=== PATIENT | male | born 2000 | race Caucasian/White ===

== ENCOUNTER 2025-01-17 20:05 | Emergency (ER) | payer BC, SELFPAY ==
[2025-01-17 20:21] VITALS: BP 155/100; PULSE 85; RESP 18; TEMP 37.1; O2SAT 99; BMI 24.4
[2025-01-17] MEDS: NITROGLYCERIN 0.4 MG TAB.SUBL SUBLINGUAL (20:33)
--- OUTSIDE RECORDS SUMMARY | 2025-01-17 20:38 | XMS_ITS | Clinical Summary ---
Author Organization [facility] Address [address] [place] [id number] Care Team Providers Care Supervisor Pairing And Inspecting Name Role Phone Jeannette, [facility] Primary Care Provider Allergies Active Allergy Reactions Criticality Noted Date Comments Penicillins 07/15/2010 Rash Medications EPInephrine (EPIPEN JR) 0.15 MG/0.3ML injectionIndicat ions:Allergic reaction Inject 0.3 mLs into the muscle as needed for anaphylaxis . 1 each 0 06/16/2011 Active SERTRALINE HCL PO Take by mouth daily Active Active Problems Problem Noted Date Diagnosed Date H/O dysplastic nevus 01/13/2016 Benign neoplasm of skin of trunk, except scrotum 04/06/2015 Plantar warts 08/12/2013 GERD (gastroesophageal reflux disease) 2 Immunizations Name Administration Dates Next Due DTAP (<7y) 06/25/2007, 3,2002,2001,2002 HEPA 04/27/2009,06/25/2007 HIB (PRP-T) 09/23/2003,2002,2002 HPV 08/20/2016 HepB 07/22/2011,03/27/2003,2002 Influenza Vaccine >6 months,quad, PF 08/20/2016, 08/26/2014 MMR 06/25/2007,05/07/2003 Meningococcal ACWY (Menactra ) 09/04/2019,07/07/2014 Pneumococcal 23 valent 09/23/2003,2002,2002,2001 Poliovirus, inactivated (IPV) 06/25/2007 ,03/27/2003,2002,2001 TDAP Vaccine (Adacel) 09/04/2019,07/07/2014 Varicella 06/25/2007,05/07/2003 Family History Medical History Relation Comments Migraines Mother Lipids Paternal Grandfather Lipids Paternal Grandmother Relation Status Comments Brother Alive Father Alive Maternal Grandfather Alive Maternal Grandmother Alive Mother Alive Paternal Grandfather Alive Paternal Grandmother Alive Social History Tobacco Use Types Packs/Day Years Used Date Smoking Tobacco: Never Smokeless Tobacco: Never Alcohol Use Standard Drinks/Week Comments No 0 (1 standard drink = 0.6 oz pur e alcohol) Adolescent Education Answer Date Record ed Getting School Help Needed Not on file 09/06 Sex and Gender Information Value Date Recorded Sex Assigned at Not on file Legal Sex Male 5:09 AM AMBULANCE DRIVER Gender Identity Not on file Sexual Orientation Not on file Last Filed Vital Signs Vital Sign Reading Time Taken Comments Blood Pressure 137/91 12/09/2021 7:13 AM AMBULANCE DRIVER Pulse 52 12/09/2021 7:13 AM AMBULANCE DRIVER Temperature 36.6 C (97.8 F) 12/09/2021 6:24 AM AMBULANCE DRIVER Respiratory Rate 16 12/09/2021 7:13 AM AMBULANCE DRIVER Oxygen Saturation 98% 12/09/2021 7:13 AM AMBULANCE DRIVER Inhaled Oxygen Concentration - - Weight 66.2 kg (145 lb 14.4 oz) 11/04/2019 2:04 PM AMBULANCE DRIVER Height 173.4 cm (5' 8.25) 11/04/2019 2:04 PM CS T Body Mass Index 22.02 11/04/2019 2:04 PM AMBULANCE DRIVER Plan of Treatment Not on file Insurance [employer] Care Teams Supervisor Pairing And Inspecting Relationship Specialty Start Date End Date [facility], [facility] [address] [address] PCP - General 01/16/19
--- OUTSIDE RECORDS SUMMARY | 2025-01-17 20:38 | XMS_ITS | Encounter Summary ---
Author Organization [facility] Address [address] [place] [id number] Care Team Providers Care Instrument Assembly Supervisor Name Role Phone Lewis Myers MD Primary Care Provider [phone] Reason for Visit * Procedure/Equipment (Routine) - Incomplete Specialty Diagnoses / Procedures Referred By Contpho[place] t Referred To Contact Diagnoses Acute cough Procedures XR Chest 2 Views Mita Ruiz APRN, LICENSED JOURNEYMAN ELECTRICIAN [address] [place] [address] Phone: tel: fax: Referral ID Status Reason Start Date Expiration Date V isits Requested Visits Authorized [id number] Incomplete 01/06/2025 04/07/2026 1 1 Encounter Details Date Type Department Care Team (Late st Contact Info) Description 01/06/2025 9:20 AM MANAGER IT TRAINING Ancillary Procedure Radiology at [facility] [address] [place] [address] Mita Ruiz APRN, LICENSED JOURNEYMAN ELECTRICIAN [address] [place] [address] Acute cough Social History Tobacco Use Types Packs/Day Years Used Date Smoking Tobacco: Some Days Cigarettes Smokeless Tobacco: Never Sex and Gender Information Value Date Recorded Sex Assigned at Not on file Legal Sex Male 7:23 PM CDT Gender Identity Not on file Sexual Orientation Not on file documented as of this encounter Plan of Treatment Upcoming Encounters Date Type Department Care Team (Late st Contact Info) Description 01/22/2025 1:30 PM MANAGER IT TRAINING Appointment [facility] [address] [place]arma [phone] Hayley Hull, PLUMBING DESIGNER, LICENSED JOURNEYMAN ELECTRICIAN [address] [phone] documented as of this encounter Procedures Procedure Name Priority Date/Time Associated Diagnosis Comments XR CHEST 2 VIEWS STAT 01/06/2025 9:23 AM MANAGER IT TRAINING Acute cough documented in this encounter Results * XR Chest 2 Views (01/06/2025 9:23 AM MANAGER IT TRAINING) Anatomical Region Laterality Modality Chest, Lung Digital Radiogra phy 01/06/2025 9:23 AM MANAGER IT TRAINING Narrative 01/06/2025 9:27 AM MANAGER IT TRAINING EXAM: XR CHEST 2 VIEWS LOCATION: [facility] DATE: 01/06/2025 INDICATION: Cough and fever. COMPARISON: 08/28/2023 IMPRESSION: Lungs clear. Pulmonary vascularity normal. No effusion. CONCLUSION: Negative chest. No change. Procedure Note Jone David MD - 01/06/2025 EXAM: XR CHEST 2 VIEWS LOCATION: [facility] DATE: 01/06/2025 INDICATION: Cough and fever. COMPARISON: 08/28/2023 IMPRESSION: Lungs clear. Pulmonary vascularity normal. No effusion. CONCLUSION: Negative chest. No change. Mita Ruiz PLUMBING DESIGNER, LICENSED JOURNEYMAN ELECTRICIAN RAD GD Final Result documented in this encounter Visit Diagnoses Diagnosis Acute cough documented in this encounter Care Teams Instrument Assembly Supervisor Relationship Specialty Start Date End Date Lewis Myers MD [address] [address] PCP - General 08/01/11 documented as of this encounter
--- OUTSIDE RECORDS SUMMARY | 2025-01-17 20:38 | XMS_ITS | Clinical Summary ---
Author Organization [facility] Address [address] [place] [address] Care Team Providers Care Inspection Machine Tender Name Role Phone None Primary Care Provider Unavailabl e Allergies Active Allergy Reactions Criticality Noted Date Comments Penicillins Rash 08/29/2023 Social History Tobacco Use Types Packs/Day Years Used Date Smoking Tobacco: Never Assessed Sex and Gender Information Value Date Recorded Sex Assigned at Not on file Legal Sex Male 5:52 PM COUNTER STITCHER Gender Identity Not on file Sexual Orientation Not on file Last Filed Vital Signs Vital Sign Reading Time Taken Comments Blood Pressure 122/79 08/29/2023 2:43 AM CDT Pulse 50 08/29/2023 2:43 AM CDT Temperature 36.8 C (98.3 F) 08/29/2023 12:34 AM CDT Respiratory Rate 16 08/29/2023 2:43 AM CDT Oxygen Saturation 97% 08/29/2023 2:43 AM CDT Inhaled Oxygen Concentration - - Weight 68 kg (150 lb) 08/29/2023 12:34 AM CDT Height 177.8 cm (5' 10) 08/29/2023 12:34 AM CDT Body Mass Index 21.52 08/29/2023 12:34 AM CDT Plan of Treatment Health Maintenance Due Date Last Done Comments Tdap 2013 Depression screening for age 12+ 2014 HIV for age 15-65 2017 HPV series for age 9-26 (1 - Male 3-dose series) 2017 BMI (ht and wt on same day) for age 18+ 2020 Hepatitis C screening for ag e 18-79 2020 Tetanus booster 2022 COVID-19 vaccine series ( season) 2024 05/12/2021, 04/02/2021 Influenza for age 9-49 07/21/2024 Pneumococcal series for age 6-49 Aged Out No longer eligible b ased on patient's age to complete this topic Insurance [place] [id number] Care Teams Inspection Machine Tender Relationship Specialty Start Date End Date None . PCP - General 08/29/23
--- OUTSIDE RECORDS SUMMARY | 2025-01-17 20:38 | XMS_ITS | Encounter Summary ---
Author Organization [facility] Address [address], [place] [address] Care Team Providers Care River Rat Name Role Phone Lewis Myers MD Primary Care Provider [phone] Reason for Referral * Procedure/Equipment (Routine) - Incomplete Specialty Diagnoses / Procedures Referred By Contac t Referred To Contact Diagnoses Acute cough Procedures XR Chest 2 Views Mita Ruiz APRN, INSURANCE CLAIMS SUPERVISOR [address] [place] [address] Phone: tel: fax: Referral ID Status Reason Start Date Expiration Date V isits Requested Visits Authorized [id number] Incomplete 01/06/2025 04/07/2026 1 1 NE ADVERTISING DIRECTOR Reason for Visit * Reason Comments COUGH CONGESTION EYE REDNESS Encounter Details Date Type Department Care Team (Late st Contact Info) Description 01/06/2025 9:40 AM ONLINE ADVERTISING DIRECTOR Office Visit [facility] Urgent [facility] [address] [place] [address] Mita Ruiz APRN, INSURANCE CLAIMS SUPERVISOR [address] [place] [address] Bacterial sinusitis (Primary Dx); Bacterial conjunctivitis Social History Tobacco Use Types Packs/Day Years Used Date Smoking Tobacco: Some Days Cigarettes Smokeless Tobacco: Never Sex and Gender Information Value Date Recorded Sex Assigned at Not on file Legal Sex Male 7:23 PM CDT Gender Identity Not on file Sexual Orientation Not on file documented as of this encounter Last Filed Vital Signs Vital Sign Reading Time Taken Comments Blood Pressure 137/83 01/06/2025 9:06 AM ONLINE ADVERTISING DIRECTOR Pulse 78 01/06/2025 9:06 AM ONLINE ADVERTISING DIRECTOR Temperature 36.9 C (98.4 F) 01/06/2025 9:06 AM ONLINE ADVERTISING DIRECTOR Respiratory Rate 16 01/06/2025 9:06 AM ONLINE ADVERTISING DIRECTOR Oxygen Saturation 100% 01/06/2025 9:06 AM ONLINE ADVERTISING DIRECTOR Inhaled Oxygen Concentration - - Weight - - Height - - Body Mass Index - - documented in this encounter Patient Instructions * Patient Instructions* Mita Ruiz APRN, INSURANCE CLAIMS SUPERVISOR - 01/06/2025 9:40 AM ONLINE ADVERTISING DIRECTOR Sinusitis (inflammation of the sinuses) You have been diagnoses with sinusitis which means the lining of the nasal passages and sinuses is irritated. This irritation can be caused by viral or bacterial infections, allergies or irritants. Because of this irritation, the nose and face can feel congested or plugged. There can be a significant amount of pain or pressure in the face or head. Your teeth may hurt. There may be increased or decreased nasal drainage or post nasal drip (drainage down the back of the throat). The drainage may be clear or opaque, white or yellow, or may have small amounts of blood in it. You may take acetaminophen (Tylenol??) or ibuprofen (motrin?? or advil??) for pain. Read and followall instructions from the decaler before using. Hot or cold pack to the face can also deaden the pain and relieve congestion. You may take over the counter decongestants such as Sudafed?? to help with drippy noses and congestion. Antihistamines which are found in many over the counter cold and allergy tablets may also help treat symptoms. Do not take these if your provider has already given you a medication that contains medications in the same family. Antihistamines can make you drowsy and decongestants can make you feel like you have had too much coffee. You should be seen by your provider if there is no improvement in symptoms in 3- 5 days. If you complete the course of treatment and symptoms then return, you may need treatment longer than 7-10 days. Call or seek medical attention IMMEDIATELY if you develop a severe headache with vision changes, severe nausea, or high fever (>102). Call your clinic or the nurse line if there are other concerns or questions. Common Cold (URI, upper respiratory infection) You have been diagnosed with a cold or URI. This is a common infection of the nose and throat that is caused by a virus. You may have a runny or stuffy nose, itchy or sore throat, cough, congestion, body aches, headaches, sneezing, watery eyes, fatigue, and low grade fever (< 102F). Many virusescan cause a cold and generally adults can have 2-4 episodes a year and children up to 10 episodes a year. Because a cold is caused by a virus, antibiotics will NOT treat this infection. Your provider may prescribe or suggest over the counter medications to treat symptoms only, they do not treat the cause. Over the counter medications may include acetaminophen (Tylenol??), Ibuprofin (Motrin?? or Advil??), decongestants, and cough syrups. If you are taking a medication please follow directions carefully. Read and follow all instructions from the decaler before using. Typically a cold will last 1-2 weeks. Over that time symptoms may wax and wane such as nasal discharge getting thicker and more colored over the course of time. In order to keep yourself comfortable you should: drink plenty of fluids avoid caffeine and alcohol get plenty of rest keep your room humidified sooth your throat with gargles use saline nasal drops to ease congestion In order NOT to spread the cold virus: wash your hands often use tissues cover your mouth and nose when you cough or sneeze don???t share drinking glasses or utensils avoid people who are sick It is not necessary to follow up with your provider if your symptoms are improving. Call or seek medical attention IMMEDIATELY if you or your child become short of breath. Occasionally a cold will lead to other infections such as ear infections, sinus infections, bronchitis, strep throat, croup or asthma exacerbations. It is important that you follow up with your provider or call the clinic or nurse line if: your symptoms are worsening your symptoms are not improved in 4-5 days you develop a fever over 102 with chills and sweats you have a fever that lasts for more than 3 days you are vomiting you have a severe headache you have ear pain you have a persistent cough your child is persistently crying [place] [facility] (Conjunctivitis) You have been diagnosed with conjunctivitis, which is a redness and soreness of the clear membrane that covers the white part of the eye and the inside of the eyelids. It can be caused by allergies, viruses, and bacteria. If you were prescribed eye drops or ointment, use them according to the directions given. Never useeye medicine that has been prescribed for someone else. Read and follow all instructions from the decaler before using. Gently wash the eyelid with tap water and a clean washcloth to keep it clean and free of discharge. For infectious conjunctivitis, use warm-water compresses on the eye. Cool compresses feel better with allergic conjunctivitis. Apply either for 10 minutes several times a day. Wash your hands frequently. Do not touch or rub your eyes. Do not share towels, washcloths, or sheets with anyone. It is spread by contact with the tears of an infected person. Do not use any eye makeup again until your eyes have returned to normal. When used, be sure to remove it each night at bedtime. Never share eye makeup or cosmetics with anyone. You should consider throwing out eye makeup you have been using. You should routinely change your eye makeup 2-3 times a year. Do not wear contact lenses until your eyes are healed. When you resume wearing them make sure they are clean AND disinfected or use a new pair. The combination of contacts and conjunctivitis may cause damage to your cornea (the clear covering on the front of your eye) and cause severe permanent vision problems. Generally you should stay home from work or school for a few days, just as you would with a cold. Avoid swimming in swimming pools if you have conjunctivitis because the chemicals may irritate youreyes. You should follow up with your provider as needed. You do not need to be routinely checked again ifyour symptoms are resolving in a few days. Call or seek medical attention IMMEDIATELY if you develop vision loss. Call your clinic or the nurse line if you have: severe eye pain blurry vision sensitivity to light or have other concerns or questions. NE ADVERTISING DIRECTOR NE ADVERTISING DIRECTOR NE ADVERTISING DIRECTOR documented in this encounter Progress Notes * Mita Ruiz APRN, CNP - 01/06/2025 9:40 AM CST SUBJECTIVE: Armond Long is a 24 y.o.male who presents to Urgent Care for evaluation of red eye and flu likesymptoms. Symptoms started 10 days ago Headache Cough Sore throat Body aches Fever 102 over the weekend Nasal congestion Sinus pain and pressure Yesterday had red eye with drainage that is stuck shut. No other concerns at this time ROS: Complete ROS was negative other than what was cited above. OBJECTIVE: Vital Signs: BP 137/83 (BP Location: Left Arm, BP Cuff Size: Regular) Pulse 78 Temp 98.4 ??F (36.9 ??C) (Oral) Resp 16 SpO2 100% . Physical Exam Vitals and nursing note reviewed. Constitutional: Appearance: Normal appearance. HENT: Right Ear: Tympanic membrane, ear canal and external ear normal. Left Ear: Tympanic membrane, ear canal and external ear normal. Nose: Nose normal. Mouth/Throat: Mouth: Mucous membranes are moist. Pharynx: Oropharynx is clear. Eyes: General: Left eye: Discharge present. Comments: Left eye sclera is red in color. There is yellow drainage noted from it. Cardiovascular: Rate and Rhythm: Normal rate. Pulses: Normal pulses. Heart sounds: Normal heart sounds. Pulmonary: Effort: Pulmonary effort is normal. No respiratory distress. Breath sounds: Normal breath sounds. No stridor. No wheezing, rhonchi or rales. Chest: Chest wall: No tenderness. Neurological: Mental Status: He is alert. CONCLUSION: Negative chest. No change. ASSESSMENT: Pt is a 24 y.o.male who presents with conjunctivitis and flu like symptoms. Plan noted below discussed at time of visit. PLAN: - erythromycin ointment sent to pharmacy - abx sent to pharmacy for sinusitis - OTC meds as needed - RTC and emergent s/s gone over Diagnosis and Associated Orders ICD-10-CM 1. Bacterial sinusitis J32.9 XR Chest 2 Views B96.89 2. Bacterial conjunctivitis H10.9 Patient Instructions Sinusitis (inflammation of the sinuses) You have been diagnoses with sinusitis which means the lining of the nasal passages and sinuses is irritated. This irritation can be caused by viral or bacterial infections, allergies or irritants. Because of this irritation, the nose and face can feel congested or plugged. There can be a significant amount of pain or pressure in the face or head. Your teeth may hurt. There may be increased or decreased nasal drainage or post nasal drip (drainage down the back of the throat). The drainage may be clear or opaque, white or yellow, or may have small amounts of blood in it. You may take acetaminophen (Tylenol??) or ibuprofen (motrin?? or advil??) for pain. Read and followall instructions from the decaler before using. Hot or cold pack to the face can also deaden the pain and relieve congestion. You may take over the counter decongestants such as Sudafed?? to help with drippy noses and congestion. Antihistamines which are found in many over the counter cold and allergy tablets may also help treat symptoms. Do not take these if your provider has already given you a medication that contains medications in the same family. Antihistamines can make you drowsy and decongestants can make you feel like you have had too much coffee. You should be seen by your provider if there is no improvement in symptoms in 3- 5 days. If you complete the course of treatment and symptoms then return, you may need treatment longer than 7-10 days. Call or seek medical attention IMMEDIATELY if you develop a severe headache with vision changes, severe nausea, or high fever (>102). Call your clinic or the nurse line if there are other concerns or questions. Common Cold (URI, upper respiratory infection) You have been diagnosed with a cold or URI. This is a common infection of the nose and throat that is caused by a virus. You may have a runny or stuffy nose, itchy or sore throat, cough, congestion, body aches, headaches, sneezing, watery eyes, fatigue, and low grade fever (< 102F). Many virusescan cause a cold and generally adults can have 2-4 episodes a year and children up to 10 episodes a year. Because a cold is caused by a virus, antibiotics will NOT treat this infection. Your provider may prescribe or suggest over the counter medications to treat symptoms only, they do not treat the cause. Over the counter medications may include acetaminophen (Tylenol??), Ibuprofin (Motrin?? or Advil??), decongestants, and cough syrups. If you are taking a medication please follow directions carefully. Read and follow all instructions from the decaler before using. Typically a cold will last 1-2 weeks. Over that time symptoms may wax and wane such as nasal discharge getting thicker and more colored over the course of time. In order to keep yourself comfortable you should: drink plenty of fluids avoid caffeine and alcohol get plenty of rest keep your room humidified sooth your throat with gargles use saline nasal drops to ease congestion In order NOT to spread the cold virus: wash your hands often use tissues cover your mouth and nose when you cough or sneeze don???t share drinking glasses or utensils avoid people who are sick It is not necessary to follow up with your provider if your symptoms are improving. Call or seek medical attention IMMEDIATELY if you or your child become short of breath. Occasionally a cold will lead to other infections such as ear infections, sinus infections, bronchitis, strep throat, croup or asthma exacerbations. It is important that you follow up with your provider or call the clinic or nurse line if: your symptoms are worsening your symptoms are not improved in 4-5 days you develop a fever over 102 with chills and sweats you have a fever that lasts for more than 3 days you are vomiting you have a severe headache you have ear pain you have a persistent cough your child is persistently crying [place] [facility] (Conjunctivitis) You have been diagnosed with conjunctivitis, which is a redness and soreness of the clear membrane that covers the white part of the eye and the inside of the eyelids. It can be caused by allergies, viruses, and bacteria. If you were prescribed eye drops or ointment, use them according to the directions given. Never useeye medicine that has been prescribed for someone else. Read and follow all instructions from the decaler before using. Gently wash the eyelid with tap water and a clean washcloth to keep it clean and free of discharge. For infectious conjunctivitis, use warm-water compresses on the eye. Cool compresses feel better with allergic conjunctivitis. Apply either for 10 minutes several times a day. Wash your hands frequently. Do not touch or rub your eyes. Do not share towels, washcloths, or sheets with anyone. It is spread by contact with the tears of an infected person. Do not use any eye makeup again until your eyes have returned to normal. When used, be sure to remove it each night at bedtime. Never share eye makeup or cosmetics with anyone. You should consider throwing out eye makeup you have been using. You should routinely change your eye makeup 2-3 times a year. Do not wear contact lenses until your eyes are healed. When you resume wearing them make sure they are clean AND disinfected or use a new pair. The combination of contacts and conjunctivitis may cause damage to your cornea (the clear covering on the front of your eye) and cause severe permanent vision problems. Generally you should stay home from work or school for a few days, just as you would with a cold. Avoid swimming in swimming pools if you have conjunctivitis because the chemicals may irritate youreyes. You should follow up with your provider as needed. You do not need to be routinely checked again ifyour symptoms are resolving in a few days. Call or seek medical attention IMMEDIATELY if you develop vision loss. Call your clinic or the nurse line if you have: severe eye pain blurry vision sensitivity to light or have other concerns or questions. Mita Ruiz APRN, INSURANCE CLAIMS SUPERVISOR NE ADVERTISING DIRECTOR documented in this encounter Nursing Notes * Yi Arroyo, EMILY - 01/06/2025 9:40 AM CST Armond Long is a 24 y.o.male presents to the Urgent Care for COUGH, CONGESTION, and EYE REDNESS Symptoms began: 3 day(s) ago. Fever: present, moderate, 101-102+. Other associated symptoms: eye irritation, fever, headache, nasal congestion, productive cough, andrunny nose, jaw pain, fatigue . Any recent close contact with an individual with a known similar illness (including COVID): no. Current medications: acetaminophen, ibuprofen, mucinex, dayquil, nyquil and sudafed. Patient requests an excuse letter for work/school: No Yi Arroyo CMA 01/06/2025, 9:06 AM NE ADVERTISING DIRECTOR documented in this encounter Plan of Treatment Upcoming Encounters Date Type Department Care Team (Late st Contact Info) Description 01/22/2025 1:30 PM ONLINE ADVERTISING DIRECTOR Appointment [facility] [address] [phone] Hayley Hull PARISH VISITOR, INSURANCE CLAIMS SUPERVISOR [address] [phone] documented as of this encounter Results * XR Chest 2 Views (01/06/2025 9:23 AM ONLINE ADVERTISING DIRECTOR) Anatomical Region Laterality Modality Chest, Lung Digital Radiogra phy 01/06/2025 9:23 AM ONLINE ADVERTISING DIRECTOR Narrative 01/06/2025 9:27 AM ONLINE ADVERTISING DIRECTOR EXAM: XR CHEST 2 VIEWS LOCATION: [facility] DATE: 01/06/2025 INDICATION: Cough and fever. COMPARISON: 08/28/2023 IMPRESSION: Lungs clear. Pulmonary vascularity normal. No effusion. CONCLUSION: Negative chest. No change. Procedure Note Jone David MD - 01/06/2025 EXAM: XR CHEST 2 VIEWS LOCATION: [facility] DATE: 01/06/2025 INDICATION: Cough and fever. COMPARISON: 08/28/2023 IMPRESSION: Lungs clear. Pulmonary vascularity normal. No effusion. CONCLUSION: Negative chest. No change. Mita Ruiz PARISH VISITOR, INSURANCE CLAIMS SUPERVISOR RAD GD Final Result documented in this encounter Visit Diagnoses Diagnosis Bacterial sinusitis- Primary Unspecified sinusitis (chronic) Bacterial conjunctivitis Other mucopurulent conjunctivitis Acute cough documented in this encounter Care Teams River Rat Relationship Specialty Start Date End Date Lewis Myers MD [address] [facility] [place] [address] PCP - General 08/01/11 documented as of this encounter
--- OUTSIDE RECORDS SUMMARY | 2025-01-17 20:38 | XMS_ITS | Encounter Summary ---
Author Organization [facility] Address [address] [place] [id number] Care Team Providers Care Vinyl Dipper Name Role Phone [facility] [place] [facility] Primary Care Provider Hieu Urias MD Unavailable Encounter Details Date Type Department Care Team (Late st Contact Info) Description 12/09/2021 Documentation Only INTERFACED REPORT Unknown, Provider Social History Tobacco Use Types Packs/Day Years Used Date Smoking Tobacco: Never Smokeless Tobacco: Never Alcohol Use Standard Drinks/Week Comments No 0 (1 standard drink = 0.6 oz pur e alcohol) Sex and Gender Information Value Date Recorded Sex Assigned at Not on file Legal Sex Male 5:09 AM OIL EXPERT Gender Identity Not on file Sexual Orientation Not on file COVID-19 Exposure Response Date Recorded In the last month, have you been in contact with someone who was confirmed or suspected to have Coronavirus / COVID-19? Yes 12/09/2021 6:14 AM OIL EXPERT documented as of this encounter Plan of Treatment Not on file documented as of this encounter Visit Diagnoses Not on filedocumented in this encounter Care Teams Vinyl Dipper Relationship Specialty Start Date End Date [facility] Child [facility] [address] [place] [address] PCP - General 01/16/19 [place] [address] [place] [address] Assigned PCP 11/10/19 11/04/22 documented as of this encounter
--- OUTSIDE RECORDS SUMMARY | 2025-01-17 20:38 | XMS_ITS | Clinical Summary ---
Author Organization [facility] Address [address] [place] [address] Care Team Providers Care [employer] Name Role Phone Lewis Myers MD Primary Care Provider [phone] Source Comments You are receiving this document as you are listed as the primary care provider,follow-up provider, or the patient has been referred to you for consultation.This is in compliance with the Medicare and[facility] EHR Incentive [facility],which states Providers who transition their patient to another setting of careor provider of care or refers their patient to another provider of care shouldprovide summary care record for each transition of care or referral. [facility] Allergies Active Allergy Reactions Criticality Noted Date Comments Penicillins 11/08/2006 PN: LW Reaction: rash Medications * This document contains information received from the source organization and may not represent a complete record from that organization. ALBUterol 2.5 mg/3 mL, 0.083%, nebulizer solution 3 mLs every 4 hours as needed. LW Addl Instr:Indicated for: Asthma 270 3 6 Active Additional Information Patient not taking.Reported on 01/06/2025 unknown medication Indications: PN: 1 Active methylphenidate (AKA RITALIN) 10 MG tabletIndicatio ns:Attention deficit disorder with hyperactivity(3 14.01) ([facility]) Take 1 tablet by mouth 2 times daily for 30 days. 60 tablet 0 2 Active Additional Information Patient not taking.Reported on 08/28/2023 ADDERALL XR 10 MG 24 hour release capsule Take 1 Capsule (10 mg) by mouth daily. 3 Active ALBUterol sulfate HFA 108 (90 Base) MCG/ACT inhaler Inhale 1-2 Puffs every 4 hours as needed for Wheezing. 1 Each 3 Active Additional Information Patient not taking.Reported on 01/06/2025 atomoxetine (STRATTERA) 60 MG capsule Take 1 Capsule (60 mg) by mouth daily. Active erythromycin 5 MG/GM (0.5%) eye ointment Place 0.5 Inches into left eye every 6 hours for 7 days. 1 g 5 01/13/20 25 doxycycline hyclate (VIBRA-TABS) 100 MG tablet Take 1 Tablet (100 mg) by mouth two times a day for 10 days. 20 Tablet 5 01/16/20 25 Active Problems Problem Noted Date Diagnosed Date Attention deficit hyperactivity disorder (ADHD) 08/11/2011 Overview (07/12/2017): Attention deficit disorder with hyperactivity(314.01) ([facility]) Encounters Date Type Department Care Team Description 01/06/2025 9:40 AM TRACTOR OPERATOR HELPER Office Visit [facility] [address] [id number] Mita Ruiz APRN, PHYSICAL THERAPIST ASSISTANT Bacterial sinusitis (Primary Dx); Bacterial conjunctivitis 01/06/2025 9:20 AM TRACTOR OPERATOR HELPER Ancillary Procedure Radiology at [address] [phone] Mita Ruiz APRN, PHYSICAL THERAPIST ASSISTANT Acute cough from Last 3 Months Immunizations Immunization Administration Dates Next Due DTaP 06/25/2007, 3,2002,2001 DTaP/Hib 09/23/2003 HPV, Unspecified Formulation 08/20/2016 HepA Ped/Adol (1-18 yrs) 04/27/2009,06/25/2007 HepB Ped/Adol (0-18 yrs) 07/22/2011,03/27/2003,0 2002 Hib (ActHIB) 2002,2002 IPV (Polio) 06/25/2007, 3,2002,2001 Influenza IIV4 (Quadrivalent ) 0.5mL (49748) 08/20/2016,08/26/2014 MCV4 (Menactra) 09/04/2019 MCV4 Menveo 2m.+ (two vial) 07/07/2014 MMR 05/07/2003 MMRV (ProQuad) 06/25/2007 Pfizer Monovalent 12+ Purple Top 05/12/2021,03/20 Pneumococcal 7, PED 09/23/2003, 3,2002,2001 Tdap 09/04/2019,07/07/2014 Varicella 05/07/2003 Social History Tobacco Use Types Packs/Day Years Used Date Smoking Tobacco: Some Days Cigarettes Smokeless Tobacco: Never Tobacco Cessation:Ready to Q uit: Not Asked; Counseling Given: Not Answered Sex and Gender Information Value Date Recorded Sex Assigned at Not on file Legal Sex Male 7:23 PM CDT Gender Identity Not on file Sexual Orientation Not on file Last Filed Vital Signs Vital Sign Reading Time Taken Comments Blood Pressure 137/83 01/06/2025 9:06 AM TRACTOR OPERATOR HELPER Pulse 78 01/06/2025 9:06 AM TRACTOR OPERATOR HELPER Temperature 36.9 C (98.4 F) 01/06/2025 9:06 AM TRACTOR OPERATOR HELPER Respiratory Rate 16 01/06/2025 9:06 AM TRACTOR OPERATOR HELPER Oxygen Saturation 100% 01/06/2025 9:0 6 AM TRACTOR OPERATOR HELPER Inhaled Oxygen Concentration - - Weight 25.8 kg (56 lb 15.8 oz) 09/13/20 09 3:41 PM CDT C: 25.9kg Height 114.3 cm (3' 9) 06/25/2007 9:08 AM CDT C: 114.3cm Body Mass Index - - Plan of Treatment Upcoming Encounters Date Type Department Care Team (Late st Contact Info) Description 01/22/2025 1:30 PM TRACTOR OPERATOR HELPER Appointment [facility] [address] [place] [address] Hayley Hull, PRIVATE HOUSEHOLD WORKER, PHYSICAL THERAPIST ASSISTANT [address] [place], [place] [id number] Health Maintenance Due Date Last Done Comments Hep C Screening (Preventive Services) 2002 MenB Immunization Discussion 2002 HPV Vaccine (2 - Male 2-dose series) 02/18/2017 08/20/2016 HIV Screening (Preventive Services) 2018 Adult Preventive Visit 2020 Pneumococcal (1 of 2 - PCV) 05/01/202102/2003, 2002, 2002, Additional history exists COVID-19 Vaccine (3 - 2023-2 5 season) 2024 05/12/2021, 04/02/2021 Influenza (#1) 2024 08/20/2016, 08/26/2014 DTaP/Tdap/Td (8 - Tdap) 09/04/2029 09/04/20 19, 07/07/2014, 06/25/2007, Additional history exists Zoster/Shingles (1 of 2) 2052 Hib Completed 09/23/2003, 08/20, 2002 IPV (Polio) Completed 06/25/2007, 06/2003, 2002, Additional history exists Varicella Completed 06/25/2007, 05/07/2003 HepA Completed 04/27/2009, 06/25/2007 HepB Completed 07/22/2011, 06/2003, 2002 MCV4 Completed 09/04/2019, 07/07/2014 Procedures Procedure Name Priority Date/Time Associated Diagnosis Comments XR CHEST 2 VIEWS STAT 01/06/2025 9:23 AM TRACTOR OPERATOR HELPER Acute cough from Last 3 Months Results * XR Chest 2 Views (01/06/2025 9:23 AM TRACTOR OPERATOR HELPER) Anatomical Region Laterality Modality Chest, Lung Digital Radiogra phy 01/06/2025 9:23 AM TRACTOR OPERATOR HELPER Narrative 01/06/2025 9:27 AM TRACTOR OPERATOR HELPER EXAM: XR CHEST 2 VIEWS LOCATION: [facility] DATE: 01/06/2025 INDICATION: Cough and fever. COMPARISON: 08/28/2023 IMPRESSION: Lungs clear. Pulmonary vascularity normal. No effusion. CONCLUSION: Negative chest. No change. Procedure Note Jone David MD - 01/06/2025 EXAM: XR CHEST 2 VIEWS LOCATION: [facility] DATE: 01/06/2025 INDICATION: Cough and fever. COMPARISON: 08/28/2023 IMPRESSION: Lungs clear. Pulmonary vascularity normal. No effusion. CONCLUSION: Negative chest. No change. Mita Ruiz PRIVATE HOUSEHOLD WORKER, PHYSICAL THERAPIST ASSISTANT RAD GD Final Result from Last 3 Months Insurance [facility] [employer] [facility] Care Teams [employer] Relationship Specialty Start Date End Date Lewis Myers MD [address] [place] [address] PCP - General 08/01/11
[2025-01-17] MEDS: SIMETHICONE/SOD BICARB/CIT AC 1 EACH GRAN.EF.PK PO ×2 (20:39→21:47)
[2025-01-17 20:46] VITALS: BP 140/101
--- NOTE | 2025-01-17 20:59 | ED.GENADULT ---
HPI - General Adult General Chief complaint: Ear/Nose/Throat Problem Stated complaint: piece of steak stuck in throat Time Seen by Provider: 01/17/25 20:16 Source: patient Mode of arrival: ambulatory Limitations: no limitations History of Present Illness HPI narrative: 24-year-old male presenting today with steak stuck in his esophagus. Patient states that he often gets food stuck in his throat but it lasts a brief period of time before he can get it back up again. He believes that approximately an hour and half ago this particular piece of steak got stuck and he has not been able to get it out. Water does not pass through. He has been needing to spit up his saliva frequently since then. He has mild discomfort in his chest because of this. He required intervention once when he had a grape stuck in his esophagus as a child. Father has similar symptoms. Patient takes atomoxetine for ADHD. Related Data Home Medications ?Medication ?Instructions ?Recorded ?Confirmed No Known Home Medications 01/17/25 01/17/25 Allergies Allergy/AdvReac Type Severity Reaction Status Date / Time Penicillins Allergy Hives Verified 01/17/25 20:24 Review of Systems Status of ROS: Reports: 10 or more systems reviewed and unremarkable except as noted in History and below [facility] Social History Do you use any of these nicotine containing products: Vaping Products How often do you have a drink containing alcohol: 2-4 times a month AUDIT-C Alcohol total score: 2 Non-prescribed substance use: denies use Exam Narrative: Exam Narrative: Well-nourished well-developed patient in no acute distress. Alert and oriented. Answers questions appropriately. Mood and affect are appropriate. Thoughts are goal oriented and rational. No tangential or magical thinking noted. Patient speaks in full sentences without needing to catch his breath. Voice sounds normal. Patient is not in any respiratory distress. HEENT: Normocephalic atraumatic. Pupils are equally round reactive to light. Extraocular muscles are intact. Conjunctivae are moist without any icterus noted. Moist mucous membranes. Posterior pharynx is normal. Neck is soft. Cardiovascular: Heart is regular rate and rhythm S1 and S2 are present without any murmurs. Lungs: Clear to auscultation bilaterally no wheezes rhonchi or rales are appreciated. Patient takes deep breaths without any discomfort. Const: Vital Signs, click to edit/add: Vital Signs - 24 hr 01/17/25 20:21 01/17/25 20:46 Temperature 98.8 F Pulse Rate [Pulse Oximeter] 85 Respiratory Rate 18 Blood Pressure [Ri t Upper Arm] 155/100 H 140/101 H Pulse Oximetry 99 Oxygen Delivery Me thod Room Air Course Course ED Course: Sublingual nitro followed by EZ gas was attempted and was not successful. IV established and IV glucagon followed by EZ gas was attempted - also unsuccessful. Vital Signs Vital signs: Initial Vital Signs Temperature 98.8 F 01/17/25 20:21 Temperature Source Temporal Artery Scan 01/17/25 20:21 Pulse Rate 85 01/17/25 20:21 Pulse Rhythm Regular 01/17/25 20:21 Respiratory Rate 18 01/17/25 20:21 Blood Pressure 155/100 H 01/17/25 20:21 Blood Pressure Mean 118 H 01/17/25 20:21 Blood Pressure Position Sitting 01/17/25 20:21 Pulse Oximetry 99 01/17/25 20:21 Oxygen Delivery Method Room Air 01/17/25 20:21 Vital Signs Temperature 98.8 F 01/17/25 20:21 Pulse Rate 85 01/17/25 20:21 Respiratory Rate 18 01/17/25 20:21 Blood Pressure 155/100 H 01/17/25 20:21 Pulse Oximetry 99 01/17/25 20:21 Oxygen Delivery Method Room Air 01/17/25 20:21 Temperature 98.8 F 01/17/25 20:21 Pulse Rate 85 01/17/25 20:21 Respiratory Rate 18 01/17/25 20:21 Blood Pressure 140/101 H 01/17/25 20:46 Pulse Oximetry 99 01/17/25 20:21 Oxygen Delivery Method Room Air 01/17/25 20:21 Medications Administered Medications: Discontinued Medications Generic Name Dose Route Start Last Admin Trade Name Freq PRN Reason Stop Dose Admin Glucagon 1 mg 01/17/25 20:49 01/17/25 21:40 Glucagon,Human Recombinant 1 Mg/Ml Vial IV 01/17/25 20:50 1 mg ONCE ONE Administration Nitroglycerin 0.4 mg 01/17/25 20:24 01/17/25 20:33 Nitroglycerin 0.4 Mg Tab.Subl SUBLINGUAL 01/17/25 20:25 0.4 mg ONCE ONE Administration Simethicone/Sodium Bicarb/Citric Ac 1 each 01/17/25 20:24 01/17/25 20:39 Simethicone/Sod Bicarb/Cit Ac 1 Each Gran.Ef.Pk PO 01/17/25 20:25 1 each ONCE ONE Administration Simethicone/Sodium Bicarb/Citric Ac 1 each 01/17/25 20:49 01/17/25 21:47 Simethicone/Sod Bicarb/Cit Ac 1 Each Gran.Ef.Pk PO 01/17/25 20:50 1 each ONCE ONE Administration Medical Decision Making MDM Narrative Medical decision making narrative: 24-year-old male with steak stuck in the esophagus. Patient will be transferred to [facility]. Discharge Plan Discharge Clinical Impression: Food impaction of esophagus Patient Disposition: Xfer Other Discharge Location: [facility] Condition: Unchanged Additional Instructions: Proceed directly to the ER at [facility] Prescriptions: No Action No Known Home Medications Follow Up/Referrals: Provider,Not a Local [Primary Care Provider] - Stand Alone Forms: [employer] Info Instructions
[2025-01-17] MEDS: GLUCAGON,HUMAN RECOMBINANT 1 MG/ML VIAL IV (21:40)
== END 2025-01-17 23:42 | disposition other institution (70) ==
PROVIDERS: Emergency Provider Family Medicine
DX: T18.120A Food in esophagus causing compression of trachea, initial encounter (principal)
CPT/HCPCS: 99284; 99285; A9270; J1610